=== PATIENT | female | born 1955 | race Caucasian/White ===

== ENCOUNTER 2021-11-20 11:10 | Emergency (ER) | payer OTHER ==
[2021-11-20 11:42] LABS: ESTIMATED GFR 55 mL/min (>60)
[2021-11-20] MEDS ORDERED: Ondansetron 4 MG/2 ML SDV IVPUSH ONE (12:07)
[2021-11-20] MEDS ORDERED: Propofol 200 MG/20 ML SDV IVPUSH ONE (12:27)
[2021-11-20] MEDS ORDERED: Sodium Chloride 0.9% 1,000 ML IV SCH (13:45)
== END 2021-11-20 13:51 ==
LOC: JP.ED 11:10
DX: S82.201A Unspecified fracture of shaft of right tibia, initial encounter for closed fracture (principal); S61.412A Laceration without foreign body of left hand, initial encounter; I48.91 Unspecified atrial fibrillation; Z20.822 Contact with and (suspected) exposure to COVID-19; V49.50XA Passenger injured in collision with unspecified motor vehicles in traffic accident, initial encounter; Y92.410 Unspecified street and highway as the place of occurrence of the external cause
CPT/HCPCS: 36415; 71045; 73590; 80053; 85025; 87635; 92960; 93005; 96374; 99285; J2405; 93010; U0002